=== PATIENT | female | born 1995 | race Caucasian/White ===

== ENCOUNTER 2024-01-06 00:52 | Emergency (ER) | payer SELFPAY ==
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
[2024-01-06 01:03] VITALS: BP 98/68; PULSE 109; RESP 15; TEMP 36.6; O2SAT 98
[2024-01-06 01:26] VITALS: BP 107/64; PULSE 64; RESP 16; O2SAT 100
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
[2024-01-06 02:28] VITALS: BP 108/66; PULSE 85; RESP 16; O2SAT 99
[2024-01-06 03:04] LABS: Estimated CRCL calculation 64 ml/min; Estimated Glomerular Filt Rate > 60
--- NOTE | 2024-01-06 05:39 | PC.NURSE ---
per edp dr. barron patient to receive 15mg of torodol IM due to patient not having iv access. this rn used closed loop communication to confirm route change. edp dr. barron verbalized understanding.
--- NOTE | 2024-01-06 05:49 | PC.NURSE ---
this rn tried x2 to call patient family member.
[2024-01-06] MEDS: KETOROLAC 30 MG/ML VIAL (*BKC) 15 MG IM (05:53)
== END 2024-01-06 06:25 | disposition home or self-care (01) ==
PROVIDERS: Emergency Provider Student in an Organized Health Care Education/Training Program
DX: T71.9XXA Asphyxiation due to unspecified cause, initial encounter (principal); T71.193A Asphyxiation due to mechanical threat to breathing due to other causes, assault, initial encounter; Y04.8XXA Assault by other bodily force, initial encounter
CPT/HCPCS: 70450; 70498; 72125; 96372; 99284; J1885; L0140; Q9967